=== PATIENT | male | born 1955 | race Caucasian/White ===

== ENCOUNTER 2021-05-26 09:19 | Inpatient (IN) ==
[~2021-05-26 09:19] MED LIST: GLUCAGON 1 MG VIAL IM PRN; NITROGLYCERIN SL 0.4 MG TABLET SL PRN; hydrALAZINE 20 MG/1 ML VIAL IV PRN
[2021-05-26 17:03] LABS: Basophils # 0.1 10*3/uL (0.0-0.2); Basophils % 0.8 % (0.0-0.8); Eosinophils # 0.4 10*3/uL (0.0-0.87); Eosinophils % 5.2 % (0.00-10.9); Hematocrit 45.9 VOL% (42.0-52.0); Hemoglobin 14.5 GM/DL (14.0-18.0); Immature Granulocytes % 0.5 %; Immature Granulocytes Absolute 0.04 #; Lymphocytes # 1.5 10*3/uL (1.4-4.0); Lymphocytes % 17.3 % (21.2-54.2); Mean Corpuscular HGB Conc 31.6 GM/DL (32-36); Mean Corpuscular Volume 82.3 FL (87-102); Mean Platelet Volume 9.5 FL (9.6-12.0); Monocytes % 7.6 % (1.7-12.7); Neutrophils % 68.6 % (38.7-73.9); Platelet Count 196 T/CUMM (130-400); Red Blood Count 5.58 MC/CUMM (3.8-5.5); Red Cell Distribution Width 14.4 % (9.3-17.3); White Blood Count 8.4 T/CUMM (4-12)
[2021-05-26] MEDS ORDERED: DEXTROSE 10% 250 ML BAG IV PRN (17:07)
[2021-05-26 17:21] LABS: Albumin 3.4 G/DL (3.4-5.0); Bilirubin,Total 0.4 MG/DL (0.20-1.00); Calcium 8.6 MG/DL (8.5-10.1); Osmolality,Calculated 282.2 MOS/KG (273-304); Potassium 3.9 MMOL/L (3.5-5.1); Total Protein 7.5 G/DL (6.4-8.2)
[2021-05-26] MEDS: INSULIN REGULAR 100 UNIT/ML SUBCUT SCH ×3 (17:26→20:53)
[2021-05-26] MEDS: ACETAMINOPHEN 325 MG TABLET PO PRN (18:35)
[2021-05-26] MEDS: CLORAZEPATE 3.75 MG TABLET PO PRN (23:02)
[2021-05-27] MEDS: INSULIN REGULAR 100 UNIT/ML SUBCUT SCH ×4 (09:02→23:20)
[2021-05-27] MEDS: amLODIPine 10 MG TABLET PO SCH (09:02)
[2021-05-27] MEDS: cloNIDine 0.1 MG TABLET PO SCH (09:03)
[2021-05-27] MEDS: CHLORHEXIDINE 0.12% ORAL RINSE 60 ML BOTTLE SWISH/SPIT SCH ×2 (09:58→20:28)
[2021-05-27] MEDS: ACETAMINOPHEN 325 MG TABLET PO PRN (09:59)
[2021-05-27] MEDS: CHLORHEXIDINE 4% SOLN 118 ML BOTTLE TOP SCH ×3 (10:00→20:28)
[2021-05-27 10:31] LABS: Calcium 8.6 MG/DL (8.5-10.1); Osmolality,Calculated 281.7 MOS/KG (273-304); Potassium 4.1 MMOL/L (3.5-5.1)
[2021-05-27] MEDS ORDERED: SERTRALINE 100 MG TABLET PO SCH (21:00)
[2021-05-27] MEDS: CLORAZEPATE 3.75 MG TABLET PO PRN (23:20)
[2021-05-28] MEDS ORDERED: PAPAVERINE 60 MG/2 ML VIAL ONE (04:55)
[2021-05-28] MEDS ORDERED: VANCOMYCIN 500 MG VIAL ONE (04:56)
[2021-05-28] MEDS ORDERED: VANCOMYCIN 1,000 MG VIAL ONE (04:56)
[2021-05-28] MEDS ORDERED: CEFUROXIME INJ 1,500 MG in SODIUM CHLORIDE 0.9% 100 ML IV ONE (05:00)
[2021-05-28] MEDS: CHLORHEXIDINE 4% SOLN 118 ML BOTTLE TOP SCH (05:13)
[2021-05-28] MEDS ORDERED: PHENYLEPHRINE DRIP 20 MG/250 ML PREMIX IV ONE (05:40)
[2021-05-28] MEDS ORDERED: NITROGLYCERIN DRIP 50 MG/250 ML BOTTLE IV ONE ×2 (05:42→10:43)
[2021-05-28] MEDS ORDERED: LIDOCAINE 2% 5 ML VIAL ONE ×2 (05:58→10:25)
[2021-05-28] MEDS ORDERED: SUFentanil 250 MCG/5 ML AMP ONE ×2 (05:58→07:34)
[2021-05-28] MEDS ORDERED: LACTATED RINGERS 1,000 ML IV ONE (05:58)
[2021-05-28] MEDS ORDERED: ePHEDrine 50 MG/ML VIAL ONE (05:58)
[2021-05-28] MEDS ORDERED: SEVOFLURANE 1 UNIT/15 MINUTE INH ONE (05:58)
[2021-05-28] MEDS ORDERED: SODIUM CHLORIDE 0.9% 1,000 ML IV ONE (05:58)
[2021-05-28] MEDS ORDERED: CALCIUM CHLORIDE 1,000 MG/10 ML VIAL IV ONE (05:58)
[2021-05-28] MEDS ORDERED: ETOMIDATE 40 MG/20 ML VIAL IV ONE (05:58)
[2021-05-28] MEDS ORDERED: MINERAL OIL/PETROLATUM OPH OINT 3.5 GM TUBE ONE (05:58)
[2021-05-28] MEDS ORDERED: SODIUM CHLORIDE 0.9% 250 ML IV ONE (05:58)
[2021-05-28] MEDS ORDERED: MIDAZOLAM 10 MG/2 ML VIAL ONE ×3 (05:58)
[2021-05-28] MEDS ORDERED: VECURONIUM 10 MG VIAL IV ONE ×2 (05:58→11:11)
[2021-05-28] MEDS ORDERED: AMINOCAPROIC ACID 5,000 MG/20 ML VIAL ONE (05:58)
[2021-05-28] MEDS ORDERED: PANTOPRAZOLE 40 MG TABLET PO ONE (06:00)
[2021-05-28] MEDS ORDERED: DIAZEPAM 5 MG TABLET PO ONE (06:00)
[2021-05-28] MEDS ORDERED: SODIUM CHLORIDE 0.9% 1,000 ML IV SCH (06:00)
[2021-05-28 06:28] LABS: Osmolality,Calculated 275.5 MOS/KG (273-304); Potassium 3.1 MMOL/L (3.5-5.1)
[2021-05-28 07:29] LABS: ABG Base Excess 2.2 MMOL/L (-2.5-2.5); ABG HCO3 26.4 MMOL/L (20-26); ABG Oxygen Saturation 99.8 % (95-100); ABG PCO2 42.1 MM HG (35-48); ABG PH 7.415 (7.35-7.45); ABG TCO2 23.5 MMOL/L (23-27); Glucose Heart Surgery 249 MG/DL (74-106); Ionized Calcium Arterial 1.14 MMOL/L (1.21-1.46); PCO2 Patient Temp Arterial 42.1 MMHG; PH Patient Temp Arterial 7.415; Patient Temperature 37 CELCIUS; Potassium Heart/CVR 3.4 MMOL/L (3.5-5.1); Sodium Heart/CVR 136 MMOL/L (135-145)
[2021-05-28 07:37] LABS: Hyaline Casts,Urine 4 /LPF (0-3); Mucus,Urine Occasional /LPF (Occasional); RBC,Urine 3 /HPF (0-4)
[2021-05-28 07:38] LABS: Bilirubin,Urine Negative (Negative); Blood, Urine Small mg/dL (Negative); Glucose,Urine (UA) 3+ mg/dL (Negative); Ketones,Urine 1+ mg/dL (Negative); Nitrite,Urine Negative (Negative); Protein,Urine 2+ mg/dL (Negative); Urine Appearance Clear (Clear); Urine Color Yellow (Yellow); Urine Specific Gravity 1.025 (1.001-1.035); Urine Urobilinogen 0.2 eU/dL (<2.0); Urine pH 5.5 (4.5-8.0)
[2021-05-28] MEDS ORDERED: ALBUTEROL INHALER 18 GM INH ONE (08:29)
[2021-05-28] MEDS ORDERED: HEPARIN/NACL 0.9% 2 UNITS/ML 1,000 UNIT/500 ML BAG IV ONE (08:37)
[2021-05-28 08:49] LABS: Hematocrit Heart Surgery 28.4 PERCENT (42-52); Hemoglobin Heart Surgery 9.2 G/DL (14.0-18.0); PCO2 Patient Temp Venous 42.9 MM HG; PH Patient Temp Venous 7.399; PO2 Patient Temp Venous 35.6 MM HG; Potassium Heart/CVR 3.2 MMOL/L (3.5-5.1); VBG Base Excess 1.7 MEQ/L (0-4); VBG HCO3 25.6 MEQ/L (24-28); VBG Oxygen Saturation 74.9 %; VBG PCO2 49.6 MMHG (41-51); VBG PH 7.356; VBG PO2 43.8 MMHG (17-40); VBG Total CO2 25.7 MMOL/L
[2021-05-28] MEDS ORDERED: SODIUM BICARBONATE 50 MEQ/50 ML VIAL IV ONE ×2 (09:10→10:26)
[2021-05-28] MEDS ORDERED: NITROPRUSSIDE 50 MG/2 ML VIAL ONE (09:10)
[2021-05-28] MEDS ORDERED: POTASSIUM CHLORIDE RIDER 20 MEQ/100 ML PREMIX IV ONE (09:10)
[2021-05-28] MEDS ORDERED: CALCIUM CHLORIDE 1,000 MG/10 ML SYRINGE IV ONE (09:11)
[2021-05-28 09:21] LABS: Hematocrit Heart Surgery 30.9 PERCENT (42-52); PH Patient Temp Venous 7.456; PO2 Patient Temp Venous 34.9 MM HG; Potassium Heart/CVR 3.5 MMOL/L (3.5-5.1); VBG Base Excess 2.4 MEQ/L (0-4); VBG HCO3 26.2 MEQ/L (24-28); VBG Oxygen Saturation 76.7 %; VBG PCO2 42.8 MMHG (41-51); VBG PH 7.412; VBG PO2 43.1 MMHG (17-40); VBG Total CO2 24.9 MMOL/L
[2021-05-28] MEDS ORDERED: ESMOLOL 100 MG/10 ML VIAL IV ONE ×2 (09:28→11:51)
[2021-05-28 09:52] LABS: Hematocrit Heart Surgery 31.6 PERCENT (42-52); Hemoglobin Heart Surgery 10.2 G/DL (14.0-18.0); PCO2 Patient Temp Venous 38.4 MM HG; PH Patient Temp Venous 7.45; PO2 Patient Temp Venous 35.1 MM HG; Potassium Heart/CVR 4.2 MMOL/L (3.5-5.1); VBG Base Excess 2.7 MEQ/L (0-4); VBG HCO3 26.3 MEQ/L (24-28); VBG Oxygen Saturation 68.4 %; VBG PCO2 38.4 MMHG (41-51); VBG PH 7.45; VBG PO2 35.1 MMHG (17-40); VBG Total CO2 24.3 MMOL/L
[2021-05-28 10:23] LABS: ABG Base Excess 0.5 MMOL/L (-2.5-2.5); ABG HCO3 24.8 MMOL/L (20-26); ABG Oxygen Saturation 99.1 % (95-100); ABG PCO2 43.8 MM HG (35-48); ABG PH 7.378 (7.35-7.45); ABG TCO2 23.4 MMOL/L (23-27); Glucose Heart Surgery 311 MG/DL (74-106); Hematocrit Heart Surgery 32.5 PERCENT (42-52); Hemoglobin Heart Surgery 10.5 G/DL (14.0-18.0); Ionized Calcium Arterial 1.26 MMOL/L (1.21-1.46); PCO2 Patient Temp Arterial 43.8 MMHG; PH Patient Temp Arterial 7.378; Patient Temperature 37 CELCIUS; Potassium Heart/CVR 3.6 MMOL/L (3.5-5.1); Sodium Heart/CVR 133 MMOL/L (135-145)
[2021-05-28] MEDS ORDERED: methylPREDNISolone SOD SUC 1,000 MG/8 ML VIAL ONE (10:25)
[2021-05-28] MEDS ORDERED: MANNITOL 100 GM/500 ML BAG IV ONE (10:25)
[2021-05-28] MEDS ORDERED: PROTAMINE SULFATE 250 MG/25 ML VIAL IV ONE (10:25)
[2021-05-28] MEDS ORDERED: DEXTROSE 5% KCL 20 MEQ 20 MEQ/1,000 ML BAG IV ONE (10:25)
[2021-05-28] MEDS ORDERED: ALBUMIN 25% 25 GM/100 ML VIAL IV ONE (10:25)
[2021-05-28] MEDS ORDERED: MAGNESIUM SULFATE 5 GM/10 ML VIAL IV ONE (10:25)
[2021-05-28] MEDS ORDERED: HEPARIN 10,000 UNIT/10 ML VIAL ONE (10:26)
[2021-05-28] MEDS ORDERED: FUROSEMIDE 20 MG/2 ML VIAL ONE (10:26)
[2021-05-28] MEDS ORDERED: POTASSIUM CHLORIDE 20 MEQ/10 ML VIAL ONE (10:26)
[2021-05-28] MEDS ORDERED: PROTAMINE SULFATE 50 MG/5 ML VIAL IV ONE (10:26)
[2021-05-28] MEDS: MIDAZOLAM 2 MG/2 ML VIAL IV PRN ×3 (11:05→12:59)
[2021-05-28] MEDS ORDERED: MIDAZOLAM 2 MG/2 ML VIAL ONE (11:06)
[2021-05-28] MEDS ORDERED: MAGNESIUM SULF RIDER 4 GM/100 ML PREMIX IV PRN (11:08)
[2021-05-28] MEDS ORDERED: ONDANSETRON 4 MG/2 ML VIAL IV PRN (11:08)
[2021-05-28] MEDS ORDERED: MIDAZOLAM 10 MG/2 ML VIAL IV PRN (11:08)
[2021-05-28] MEDS ORDERED: MAGNESIUM SULF RIDER 2 GM/50 ML PREMIX IV PRN (11:08)
[2021-05-28] MEDS ORDERED: CALCIUM CHLORIDE 1,000 MG/10 ML SYRINGE IV PRN (11:08)
[2021-05-28] MEDS ORDERED: NITROPRUSSIDE 100 MG in DEXTROSE 5% 250 ML IV PRN (11:08)
[2021-05-28] MEDS ORDERED: PHENYLEPHRINE DRIP 40 MG/250 ML PREMIX IV PRN (11:08)
[2021-05-28] MEDS ORDERED: VECURONIUM 10 MG VIAL IV PRN ×2 (11:08)
[2021-05-28] MEDS ORDERED: INSULIN REGULAR 100 UNIT/ML IV PRN (11:08)
[2021-05-28] MEDS ORDERED: INSULIN REGULAR 100 UNIT/ML IV ONE (11:08)
[2021-05-28] MEDS ORDERED: CHLORHEXIDINE 4% SOLN 118 ML BOTTLE TOP PRN (11:08)
[2021-05-28] MEDS ORDERED: DEXTROSE 10% 250 ML BAG IV PRN ×2 (11:08)
[2021-05-28] MEDS ORDERED: ACETAMINOPHEN 650 MG SUPP RECTAL PRN (11:08)
[2021-05-28] MEDS: METOPROLOL TARTRATE 25 MG TABLET PO SCH ×2 (11:14→22:21)
[2021-05-28 11:20] LABS: ABG Base Excess -2.3 MMOL/L (-2.5-2.5); ABG HCO3 22.5 MMOL/L (20-26); ABG Oxygen Saturation 98.5 % (95-100); ABG PCO2 47.7 MM HG (35-48); ABG PH 7.314 (7.35-7.45); ABG TCO2 21.9 MMOL/L (23-27); Glucose Heart Surgery 354 MG/DL (74-106); Hematocrit Heart Surgery 34.1 PERCENT (42-52); Hemoglobin Heart Surgery 11.1 G/DL (14.0-18.0); Potassium Heart/CVR 3.2 MMOL/L (3.5-5.1)
[2021-05-28 11:24] LABS: Basophils % 0.7 % (0.0-0.8); Eosinophils # 0.2 10*3/uL (0.0-0.87); Eosinophils % 2.5 % (0.00-10.9); Hematocrit 34.1 VOL% (42.0-52.0); Hemoglobin 11.2 GM/DL (14.0-18.0); Immature Granulocytes % 0.5 %; Immature Granulocytes Absolute 0.03 #; Lymphocytes # 0.6 10*3/uL (1.4-4.0); Lymphocytes % 10.5 % (21.2-54.2); Mean Corpuscular HGB Conc 32.8 GM/DL (32-36); Mean Corpuscular Volume 80.8 FL (87-102); Mean Platelet Volume 9.5 FL (9.6-12.0); Monocytes % 4.8 % (1.7-12.7); Platelet Count 145 T/CUMM (130-400); Red Blood Count 4.22 MC/CUMM (3.8-5.5); Red Cell Distribution Width 14.1 % (9.3-17.3); White Blood Count 6.1 T/CUMM (4-12)
[2021-05-28] MEDS: MORPHINE 10 MG/1 ML VIAL IV PRN ×3 (11:28→18:33)
[2021-05-28 11:37] LABS: INR 1.1; PT Patient Result 12.3 SECS (10.5-12.0); Partial Thromboplastin Time 30.1 SECS (23.8-32.1)
[2021-05-28] MEDS ORDERED: hydrALAZINE 20 MG/1 ML VIAL ONE (11:40)
[2021-05-28 11:49] LABS: CKMB % 5.3 %
[2021-05-28] MEDS ORDERED: LABETALOL 20 MG/4 ML SYRINGE IV ONE (11:50)
[2021-05-28 11:52] LABS: High Sensitive Troponin I* 1623.8 ng/L (0-78)
[2021-05-28] MEDS ORDERED: VALSARTAN 160 MG TABLET PER TUBE SCH (12:00)
[2021-05-28] MEDS ORDERED: LABETALOL INJ 200 MG in SODIUM CHLORIDE 0.9% 160 ML IV SCH (12:00)
[2021-05-28] MEDS: SODIUM CHLORIDE 0.45% 1,000 ML IV SCH ×2 (12:04)
[2021-05-28 12:07] LABS: Albumin 2.6 G/DL (3.4-5.0); Bilirubin,Total 0.7 MG/DL (0.20-1.00); Calcium 7.6 MG/DL (8.5-10.1); Potassium 3.4 MMOL/L (3.5-5.1); Total Protein 5.1 G/DL (6.4-8.2)
[2021-05-28] MEDS: POTASSIUM CHLORIDE RIDER 20 MEQ/100 ML PREMIX IV PRN ×8 (12:07→23:43)
[2021-05-28] MEDS: ALBUMIN 5% 12.5 GM/250 ML VIAL IV PRN ×3 (12:14→22:22)
[2021-05-28] MEDS: LACTATED RINGERS 250 ML IV PRN ×6 (12:14→16:27)
[2021-05-28 12:21] LABS: Lymphocytes 11 % (20-55); Metamyelocytes 1 %; Microcytosis 1+; Platelet Estimate Normal; Segmented Neutrophils 85 % (50-85); Spherocytes Slight; Total Cells Counted 100
[2021-05-28] MEDS: INSULIN REGULAR 100 UNIT/ML SUBCUT SCH (12:23)
[2021-05-28] MEDS: cloNIDine 0.1 MG TABLET PO SCH ×3 (12:23→22:21)
[2021-05-28] MEDS: CHLORHEXIDINE 0.12% ORAL RINSE 60 ML BOTTLE SWISH/SPIT SCH ×2 (12:24→21:35)
[2021-05-28] MEDS: amLODIPine 10 MG TABLET PO SCH (12:24)
[2021-05-28] MEDS: INSULIN REGULAR DRIP 100 ML IV SCH ×2 (12:54→19:50)
[2021-05-28] MEDS ORDERED: FUROSEMIDE 40 MG/4 ML VIAL IV ONE ×2 (14:06→18:10)
[2021-05-28 14:27] LABS: ABG Base Excess -1.9 MMOL/L (-2.5-2.5); ABG HCO3 22.8 MMOL/L (20-26); ABG Oxygen Saturation 97.1 % (95-100); ABG PCO2 45.1 MM HG (35-48); ABG PH 7.334 (7.35-7.45); ABG PO2 94.5 MM HG (80-95)
[2021-05-28 14:37] LABS: ABG Base Excess -1.4 MMOL/L (-2.5-2.5); ABG HCO3 23.2 MMOL/L (20-26); ABG Oxygen Saturation 96.8 % (95-100); ABG PCO2 45.2 MM HG (35-48); ABG PH 7.342 (7.35-7.45); ABG PO2 88.9 MM HG (80-95); ABG TCO2 22.4 MMOL/L (23-27); Glucose Heart Surgery 380 MG/DL (74-106); Hematocrit Heart Surgery 31.2 PERCENT (42-52); Hemoglobin Heart Surgery 10.1 G/DL (14.0-18.0); Potassium Heart/CVR 3.4 MMOL/L (3.5-5.1)
[2021-05-28 16:58] LABS: ABG Base Excess -2.4 MMOL/L (-2.5-2.5); ABG HCO3 22.4 MMOL/L (20-26); ABG Oxygen Saturation 97.6 % (95-100); ABG PCO2 44.7 MM HG (35-48); ABG PO2 98.9 MM HG (80-95); ABG TCO2 21.7 MMOL/L (23-27); Glucose Heart Surgery 309 MG/DL (74-106); Hematocrit Heart Surgery 30.2 PERCENT (42-52); Hemoglobin Heart Surgery 9.7 G/DL (14.0-18.0); Potassium Heart/CVR 3.3 MMOL/L (3.5-5.1)
[2021-05-28] MEDS: DEXMEDETOMIDINE 200 MCG in SODIUM CHLORIDE 0.9% 48 ML IV PRN ×2 (17:11→20:19)
[2021-05-28] MEDS: CEFUROXIME INJ 1,500 MG in SODIUM CHLORIDE 0.9% 100 ML IV SCH (18:42)
[2021-05-28] MEDS: FUROSEMIDE INJ 100 MG in SODIUM CHLORIDE 0.9% 90 ML IV SCH ×2 (19:05→23:52)
[2021-05-28 19:39] LABS: ABG Base Excess -2.4 MMOL/L (-2.5-2.5); ABG HCO3 22.4 MMOL/L (20-26); ABG PCO2 41.5 MM HG (35-48); ABG PH 7.352 (7.35-7.45); ABG TCO2 20.9 MMOL/L (23-27); Glucose Heart Surgery 246 MG/DL (74-106); Hemoglobin Heart Surgery 10.4 G/DL (14.0-18.0); Potassium Heart/CVR 3.2 MMOL/L (3.5-5.1)
[2021-05-28 19:58] LABS: CKMB % 3.9 %; High Sensitive Troponin I* 1716.8 ng/L (0-78)
[2021-05-28] MEDS ORDERED: DEXMEDETOMIDINE 400 MCG in SODIUM CHLORIDE 0.9% 96 ML IV PRN (20:53)
[2021-05-28 21:10] LABS: ABG Base Excess -1.8 MMOL/L (-2.5-2.5); ABG HCO3 22.8 MMOL/L (20-26); ABG Oxygen Saturation 95.6 % (95-100); ABG PH 7.396 (7.35-7.45); ABG PO2 80.3 MM HG (80-95); Glucose Heart Surgery 202 MG/DL (74-106); Hemoglobin Heart Surgery 10.4 G/DL (14.0-18.0); Potassium Heart/CVR 3.4 MMOL/L (3.5-5.1)
[2021-05-28] MEDS: MORPHINE 4 MG/1 ML VIAL IV PRN (21:55)
[2021-05-28 22:51] LABS: ABG Base Excess -1.5 MMOL/L (-2.5-2.5); ABG HCO3 23.1 MMOL/L (20-26); ABG Oxygen Saturation 96.9 % (95-100); ABG PCO2 40.4 MM HG (35-48); ABG PH 7.374 (7.35-7.45); ABG PO2 86.4 MM HG (80-95); ABG TCO2 21.5 MMOL/L (23-27); Glucose Heart Surgery 157 MG/DL (74-106); Hematocrit Heart Surgery 30.4 PERCENT (42-52); Hemoglobin Heart Surgery 9.8 G/DL (14.0-18.0); Potassium Heart/CVR 3.9 MMOL/L (3.5-5.1)
[2021-05-29 00:15] LABS: ABG Base Excess -1.1 MMOL/L (-2.5-2.5); ABG HCO3 23.3 MMOL/L (20-26); ABG Oxygen Saturation 96.7 % (95-100); ABG PCO2 37.7 MM HG (35-48); ABG PH 7.409 (7.35-7.45); ABG PO2 90.5 MM HG (80-95); ABG TCO2 24.5 MMOL/L (23-27); Glucose Heart Surgery 116 MG/DL (74-106); Hemoglobin Heart Surgery 10.7 G/DL (14.0-18.0); Potassium Heart/CVR 3.9 MMOL/L (3.5-5.1)
[2021-05-29] MEDS: POTASSIUM CHLORIDE RIDER 10 MEQ/100 ML PREMIX IV PRN ×2 (00:38→06:51)
[2021-05-29 01:06] LABS: ABG Base Excess -0.3 MMOL/L (-2.5-2.5); ABG HCO3 24.1 MMOL/L (20-26); ABG Oxygen Saturation 95.7 % (95-100); ABG PCO2 38.5 MM HG (35-48); ABG PH 7.414 (7.35-7.45); ABG PO2 78.4 MM HG (80-95); ABG TCO2 25.3 MMOL/L (23-27); Glucose Heart Surgery 127 MG/DL (74-106); Hemoglobin Heart Surgery 10.5 G/DL (14.0-18.0); Potassium Heart/CVR 4.1 MMOL/L (3.5-5.1)
[2021-05-29 01:53] LABS: ABG Base Excess -0.8 MMOL/L (-2.5-2.5); ABG HCO3 23.7 MMOL/L (20-26); ABG Oxygen Saturation 97.2 % (95-100); ABG PCO2 41.2 MM HG (35-48); ABG PH 7.378 (7.35-7.45); ABG PO2 89.9 MM HG (80-95); ABG TCO2 22.1 MMOL/L (23-27); Glucose Heart Surgery 170 MG/DL (74-106); Hematocrit Heart Surgery 30.6 PERCENT (42-52); Hemoglobin Heart Surgery 9.9 G/DL (14.0-18.0)
[2021-05-29 02:49] LABS: ABG Base Excess -0.9 MMOL/L (-2.5-2.5); ABG HCO3 23.6 MMOL/L (20-26); ABG Oxygen Saturation 97.3 % (95-100); ABG PCO2 42.4 MM HG (35-48); ABG PH 7.367 (7.35-7.45); ABG PO2 89.5 MM HG (80-95); ABG TCO2 22.4 MMOL/L (23-27); Glucose Heart Surgery 189 MG/DL (74-106); Hematocrit Heart Surgery 29.4 PERCENT (42-52); Hemoglobin Heart Surgery 9.5 G/DL (14.0-18.0); Potassium Heart/CVR 3.6 MMOL/L (3.5-5.1)
[2021-05-29 02:51] LABS: Basophils % 0.2 % (0.0-0.8); Hemoglobin 9.7 GM/DL (14.0-18.0); Immature Granulocytes Absolute 0.11 #; Lymphocytes # 0.3 10*3/uL (1.4-4.0); Lymphocytes % 2.8 % (21.2-54.2); Mean Corpuscular HGB Conc 32.3 GM/DL (32-36); Mean Corpuscular Volume 81.5 FL (87-102); Mean Platelet Volume 9.4 FL (9.6-12.0); Platelet Count 146 T/CUMM (130-400); Red Blood Count 3.68 MC/CUMM (3.8-5.5); Red Cell Distribution Width 14.5 % (9.3-17.3); White Blood Count 11.1 T/CUMM (4-12)
[2021-05-29] MEDS: POTASSIUM CHLORIDE RIDER 20 MEQ/100 ML PREMIX IV PRN ×2 (03:05→05:40)
[2021-05-29 03:15] LABS: CKMB % 2.7 %
[2021-05-29 03:16] LABS: High Sensitive Troponin I* 1574.9 ng/L (0-78)
[2021-05-29 03:20] LABS: Lymphocytes 5 % (20-55); Platelet Estimate Adequate; Segmented Neutrophils 91 % (50-85); Total Cells Counted 100
[2021-05-29 03:35] LABS: Bilirubin,Direct 0.11 MG/DL (0.0-0.20); Bilirubin,Total 0.4 MG/DL (0.20-1.00); Calcium 7.9 MG/DL (8.5-10.1); Osmolality,Calculated 287.5 MOS/KG (273-304); Potassium 3.7 MMOL/L (3.5-5.1); Total Protein 5.7 G/DL (6.4-8.2)
[2021-05-29] MEDS: ALBUMIN 5% 12.5 GM/250 ML VIAL IV PRN (03:50)
[2021-05-29] MEDS: MORPHINE 4 MG/1 ML VIAL IV PRN ×3 (04:40→08:37)
[2021-05-29] MEDS: FUROSEMIDE INJ 100 MG in SODIUM CHLORIDE 0.9% 90 ML IV SCH (04:44)
[2021-05-29 05:12] LABS: ABG HCO3 23.6 MMOL/L (20-26); ABG Oxygen Saturation 96.8 % (95-100); ABG PCO2 39.4 MM HG (35-48); ABG PH 7.389 (7.35-7.45); ABG PO2 84.7 MM HG (80-95); ABG TCO2 21.9 MMOL/L (23-27); Glucose Heart Surgery 150 MG/DL (74-106); Hematocrit Heart Surgery 28.7 PERCENT (42-52); Hemoglobin Heart Surgery 9.3 G/DL (14.0-18.0); Potassium Heart/CVR 3.8 MMOL/L (3.5-5.1)
[2021-05-29] MEDS: CEFUROXIME INJ 1,500 MG in SODIUM CHLORIDE 0.9% 100 ML IV SCH ×2 (06:17→18:03)
[2021-05-29] MEDS: INSULIN REGULAR 100 UNIT/ML SUBCUT SCH ×5 (07:53→21:27)
[2021-05-29] MEDS: LACTATED RINGERS 250 ML IV PRN ×3 (08:01→09:09)
[2021-05-29] MEDS: cloNIDine 0.1 MG TABLET PO SCH ×2 (08:23→21:26)
[2021-05-29] MEDS: ASPIRIN EC 81 MG TABLET PO SCH (08:23)
[2021-05-29] MEDS: METOPROLOL TARTRATE 25 MG TABLET PO SCH (08:23)
[2021-05-29] MEDS: CHLORHEXIDINE 0.12% ORAL RINSE 60 ML BOTTLE SWISH/SPIT SCH ×3 (08:23→21:27)
[2021-05-29] MEDS: amLODIPine 10 MG TABLET PO SCH (08:23)
[2021-05-29] MEDS: oxyCODONE/ACETAMINOPHEN 5-325 MG TABLET PO PRN ×3 (08:38→15:30)
[2021-05-29 08:48] LABS: ABG Base Excess -2.1 MMOL/L (-2.5-2.5); ABG HCO3 22.6 MMOL/L (20-26); ABG Oxygen Saturation 95.3 % (95-100); ABG PH 7.462 (7.35-7.45); ABG PO2 68.1 MM HG (80-95); ABG TCO2 18.9 MMOL/L (23-27); Glucose Heart Surgery 225 MG/DL (74-106); Hematocrit Heart Surgery 30.6 PERCENT (42-52); Hemoglobin Heart Surgery 9.9 G/DL (14.0-18.0); Potassium Heart/CVR 4.1 MMOL/L (3.5-5.1)
[2021-05-29] MEDS ORDERED: MAGNESIUM HYDROXIDE SUSP 30 ML UDCUP PO PRN (11:41)
[2021-05-29] MEDS ORDERED: MAGNESIUM SULF RIDER 4 GM/100 ML PREMIX IV PRN (11:41)
[2021-05-29] MEDS ORDERED: MAGNESIUM SULF RIDER 2 GM/50 ML PREMIX IV PRN (11:41)
[2021-05-29] MEDS ORDERED: ACETAMINOPHEN 325 MG TABLET PO PRN (11:41)
[2021-05-29] MEDS ORDERED: ONDANSETRON 4 MG/2 ML VIAL IV PRN (11:41)
[2021-05-29] MEDS ORDERED: GLUCAGON 1 MG VIAL IM PRN (11:41)
[2021-05-29] MEDS ORDERED: ALUMINUM/MAGNES/SIMETH MAX STR 30 ML UDCUP PO PRN (11:41)
[2021-05-29] MEDS ORDERED: DEXTROSE 10% 250 ML BAG IV PRN (11:41)
[2021-05-29] MEDS ORDERED: SODIUM CHLOR 0.45% KCL 20 MEQ 20 MEQ/1,000 ML BAG IV SCH (11:41)
[2021-05-29 12:00] LABS: CKMB % 1.6 %; High Sensitive Troponin I* 1214.6 ng/L (0-78)
[2021-05-29] MEDS: DOCUSATE SODIUM 100 MG CAPSULE PO SCH (12:33)
[2021-05-29] MEDS: FERROUS SULFATE 325 MG TABLET PO SCH (12:34)
[2021-05-29] MEDS: PANTOPRAZOLE 40 MG TABLET PO SCH (12:34)
[2021-05-29] MEDS: ASCORBIC ACID 500 MG TABLET PO SCH ×2 (12:34→21:25)
[2021-05-29] MEDS: ALBUTEROL/IPRATROPIUM 3 ML NEB RESP TX SCH ×2 (13:50→19:30)
[2021-05-29] MEDS: INSULIN REGULAR DRIP 100 ML IV SCH (14:24)
[2021-05-29] MEDS: SODIUM CHLORIDE 0.45% 1,000 ML IV SCH ×2 (14:24)
[2021-05-29] MEDS ORDERED: HYDROmorphone 1 MG/1 ML SYRINGE IV ONE (19:45)
[2021-05-29] MEDS ORDERED: INSULIN GLARGINE 100 UNIT/ML SUBCUT ONE (20:00)
[2021-05-29] MEDS: ZALEPLON 5 MG CAPSULE PO PRN (21:25)
[2021-05-29] MEDS: SERTRALINE 100 MG TABLET PO SCH (21:26)
[2021-05-30] MEDS: ZALEPLON 5 MG CAPSULE PO PRN (00:53)
[2021-05-30 04:52] LABS: Basophils % 0.1 % (0.0-0.8); Hematocrit 31.9 VOL% (42.0-52.0); Hemoglobin 10.2 GM/DL (14.0-18.0); Immature Granulocytes % 1.1 %; Immature Granulocytes Absolute 0.11 #; Lymphocytes # 0.6 10*3/uL (1.4-4.0); Lymphocytes % 5.5 % (21.2-54.2); Mean Corpuscular Volume 82.6 FL (87-102); Mean Platelet Volume 10.3 FL (9.6-12.0); Monocytes % 9.2 % (1.7-12.7); Neutrophils % 84.1 % (38.7-73.9); Platelet Count 151 T/CUMM (130-400); Red Blood Count 3.86 MC/CUMM (3.8-5.5); Red Cell Distribution Width 14.6 % (9.3-17.3); White Blood Count 10.4 T/CUMM (4-12)
[2021-05-30 05:11] LABS: Albumin 2.9 G/DL (3.4-5.0); Bilirubin,Direct 0.12 MG/DL (0.0-0.20); Bilirubin,Direct 0.14 MG/DL (0.0-0.20); Bilirubin,Indirect 0.4 MG/DL (0.0-1.0); Bilirubin,Total 0.5 MG/DL (0.20-1.00); Bilirubin,Total 0.8 MG/DL (0.20-1.00); CKMB % 1.2 %; Calcium 7.8 MG/DL (8.5-10.1); Osmolality,Calculated 285.1 MOS/KG (273-304); Potassium 4.2 MMOL/L (3.5-5.1); Total Protein 6.1 G/DL (6.4-8.2)
[2021-05-30 05:12] LABS: High Sensitive Troponin I* 752.1 ng/L (0-78)
[2021-05-30 05:14] LABS: Hypochromia 1+; Lymphocytes 7 % (20-55); Microcytosis 1+; Platelet Estimate Adequate; Segmented Neutrophils 86 % (50-85); Total Cells Counted 100
[2021-05-30] MEDS ORDERED: FUROSEMIDE 40 MG/4 ML VIAL IV ONE (06:00)
[2021-05-30] MEDS: ALBUTEROL/IPRATROPIUM 3 ML NEB RESP TX SCH ×4 (07:05→19:52)
[2021-05-30] MEDS ORDERED: AMIODARONE INJ 150 MG in DEXTROSE 5% 100 ML IV ONE (08:03)
[2021-05-30] MEDS ORDERED: DILTIAZEM 50 MG/10 ML VIAL IV ONE (08:05)
[2021-05-30] MEDS ORDERED: AMIODARONE 150 MG/3 ML VIAL ONE (08:07)
[2021-05-30] MEDS ORDERED: AMIODARONE 450 MG/9 ML VIAL IV ONE (08:08)
[2021-05-30] MEDS: FERROUS SULFATE 325 MG TABLET PO SCH (08:20)
[2021-05-30] MEDS ORDERED: AMIODARONE INJ 450 MG in DEXTROSE 5% 241 ML IV SCH (08:30)
[2021-05-30] MEDS ORDERED: INSULIN GLARGINE 100 UNIT/ML SUBCUT SCH (09:00)
[2021-05-30] MEDS: DILTIAZEM INJ 100 MG in SODIUM CHLORIDE 0.9% 100 ML IV SCH (09:05)
[2021-05-30] MEDS: ASPIRIN EC 81 MG TABLET PO SCH (09:18)
[2021-05-30] MEDS: cloNIDine 0.1 MG TABLET PO SCH ×2 (09:18→20:25)
[2021-05-30] MEDS: ASCORBIC ACID 500 MG TABLET PO SCH ×2 (09:18→20:26)
[2021-05-30] MEDS: GABAPENTIN 300 MG CAPSULE PO SCH (09:18)
[2021-05-30] MEDS: carvediloL 3.125 MG TABLET PO SCH ×2 (09:19→20:26)
[2021-05-30] MEDS: amLODIPine 10 MG TABLET PO SCH (09:19)
[2021-05-30] MEDS: DOCUSATE SODIUM 100 MG CAPSULE PO SCH (09:19)
[2021-05-30] MEDS: POTASSIUM CHLORIDE 20 MEQ TABLET PO PRN (09:19)
[2021-05-30] MEDS: PANTOPRAZOLE 40 MG TABLET PO SCH (09:19)
[2021-05-30] MEDS: INSULIN REGULAR 100 UNIT/ML SUBCUT SCH (09:22)
[2021-05-30] MEDS ORDERED: INSULIN GLARGINE 100 UNIT/ML SUBCUT ONE (10:25)
[2021-05-30 12:01] LABS: Folate 13.28 NG/ML (5.38-24.0)
[2021-05-30 12:04] LABS: % Iron Saturation 7.5 % (18-50); Thyroid Stimulating Hormone 0.13 uIU/ml (0.358-3.74)
[2021-05-30] MEDS: INSULIN LISPRO 100 UNIT/ML SUBCUT SCH ×3 (12:40→20:26)
[2021-05-30] MEDS: CHLORHEXIDINE 0.12% ORAL RINSE 60 ML BOTTLE SWISH/SPIT SCH ×2 (13:44→20:25)
[2021-05-30] MEDS: AMIODARONE INJ 450 MG in DEXTROSE 5% 241 ML IV SCH (16:15)
[2021-05-30] MEDS: ATORVASTATIN 20 MG TABLET PO SCH (20:26)
[2021-05-30] MEDS: SERTRALINE 100 MG TABLET PO SCH (20:26)
[2021-05-31] MEDS: AMIODARONE INJ 450 MG in DEXTROSE 5% 241 ML IV SCH ×2 (00:09→07:35)
[2021-05-31] MEDS: ALBUTEROL/IPRATROPIUM 3 ML NEB RESP TX SCH ×4 (01:20→20:00)
[2021-05-31 05:29] LABS: Basophils % 0.1 % (0.0-0.8); Eosinophils # 0.1 10*3/uL (0.0-0.87); Eosinophils % 0.5 % (0.00-10.9); Hematocrit 32.2 VOL% (42.0-52.0); Hemoglobin 10.3 GM/DL (14.0-18.0); Immature Granulocytes % 0.7 %; Immature Granulocytes Absolute 0.07 #; Lymphocytes # 1.3 10*3/uL (1.4-4.0); Lymphocytes % 13.2 % (21.2-54.2); Mean Corpuscular Volume 83.9 FL (87-102); Mean Platelet Volume 10.9 FL (9.6-12.0); Monocytes % 11.5 % (1.7-12.7); Platelet Count 167 T/CUMM (130-400); Red Blood Count 3.84 MC/CUMM (3.8-5.5); Red Cell Distribution Width 14.8 % (9.3-17.3); White Blood Count 9.5 T/CUMM (4-12)
[2021-05-31 05:53] LABS: Alanine Aminotransferase 21 U/L (16-61); Albumin 2.6 G/DL (3.4-5.0); Albumin 2.8 G/DL (3.4-5.0); Aspartate Amino Transferase 17 U/L (0-37); Bilirubin,Direct 0.14 MG/DL (0.0-0.20); Bilirubin,Indirect 0.4 MG/DL (0.0-1.0); Bilirubin,Total 0.6 MG/DL (0.20-1.00); Calcium 7.9 MG/DL (8.5-10.1); Potassium 3.7 MMOL/L (3.5-5.1); Total Protein 5.9 G/DL (6.4-8.2); Total Protein 6.1 G/DL (6.4-8.2)
[2021-05-31 05:54] LABS: Alkaline Phosphatase 77 U/L (45-117)
[2021-05-31] MEDS: POLYETHYLENE GLYCOL POWDER 17 GM PACK PO SCH (09:28)
[2021-05-31] MEDS: DOCUSATE SODIUM 100 MG CAPSULE PO SCH (09:29)
[2021-05-31] MEDS: GABAPENTIN 300 MG CAPSULE PO SCH (09:29)
[2021-05-31] MEDS: PANTOPRAZOLE 40 MG TABLET PO SCH (09:30)
[2021-05-31] MEDS: cloNIDine 0.1 MG TABLET PO SCH ×2 (09:30→21:07)
[2021-05-31] MEDS: ASCORBIC ACID 500 MG TABLET PO SCH ×2 (09:30→21:07)
[2021-05-31] MEDS: carvediloL 3.125 MG TABLET PO SCH ×2 (09:30→21:08)
[2021-05-31] MEDS: ASPIRIN EC 81 MG TABLET PO SCH (09:30)
[2021-05-31] MEDS: POTASSIUM CHLORIDE 20 MEQ TABLET PO PRN ×2 (09:31→09:32)
[2021-05-31] MEDS: AMIODARONE 200 MG TABLET PO SCH ×2 (09:31→21:07)
[2021-05-31] MEDS: amLODIPine 5 MG TABLET PO SCH (09:31)
[2021-05-31] MEDS: INSULIN LISPRO 100 UNIT/ML SUBCUT SCH ×4 (09:34→21:08)
[2021-05-31] MEDS: INSULIN GLARGINE 100 UNIT/ML SUBCUT SCH (09:35)
[2021-05-31] MEDS: FERROUS SULFATE 325 MG TABLET PO SCH (11:31)
[2021-05-31] MEDS: DILTIAZEM INJ 100 MG in SODIUM CHLORIDE 0.9% 100 ML IV SCH (11:32)
[2021-05-31] MEDS: CHLORHEXIDINE 0.12% ORAL RINSE 60 ML BOTTLE SWISH/SPIT SCH ×2 (13:15→21:08)
[2021-05-31] MEDS ORDERED: LACTULOSE 20 GM/30 ML UDCUP PO PRN (14:45)
[2021-05-31] MEDS: SERTRALINE 100 MG TABLET PO SCH (21:07)
[2021-05-31] MEDS: ATORVASTATIN 20 MG TABLET PO SCH (21:07)
[2021-06-01] MEDS: ALBUTEROL/IPRATROPIUM 3 ML NEB RESP TX SCH ×2 (00:30→07:15)
[2021-06-01 06:16] LABS: Basophils % 0.4 % (0.0-0.8); Eosinophils # 0.4 10*3/uL (0.0-0.87); Eosinophils % 5.3 % (0.00-10.9); Hematocrit 31.9 VOL% (42.0-52.0); Hemoglobin 10.1 GM/DL (14.0-18.0); Immature Granulocytes % 0.7 %; Immature Granulocytes Absolute 0.05 #; Lymphocytes # 1.2 10*3/uL (1.4-4.0); Lymphocytes % 15.7 % (21.2-54.2); Mean Corpuscular HGB Conc 31.7 GM/DL (32-36); Mean Corpuscular Volume 83.7 FL (87-102); Mean Platelet Volume 10.5 FL (9.6-12.0); Monocytes % 12.9 % (1.7-12.7); Platelet Count 176 T/CUMM (130-400); Red Blood Count 3.81 MC/CUMM (3.8-5.5); Red Cell Distribution Width 14.5 % (9.3-17.3); White Blood Count 7.4 T/CUMM (4-12)
[2021-06-01 06:23] LABS: Calcium 7.9 MG/DL (8.5-10.1); Potassium 3.7 MMOL/L (3.5-5.1)
[2021-06-01] MEDS: GABAPENTIN 300 MG CAPSULE PO SCH (09:01)
[2021-06-01] MEDS: POLYETHYLENE GLYCOL POWDER 17 GM PACK PO SCH (09:01)
[2021-06-01] MEDS: carvediloL 3.125 MG TABLET PO SCH (09:01)
[2021-06-01] MEDS: ASCORBIC ACID 500 MG TABLET PO SCH (09:01)
[2021-06-01] MEDS: cloNIDine 0.1 MG TABLET PO SCH (09:01)
[2021-06-01] MEDS: FERROUS SULFATE 325 MG TABLET PO SCH (09:01)
[2021-06-01] MEDS: DOCUSATE SODIUM 100 MG CAPSULE PO SCH (09:02)
[2021-06-01] MEDS: PANTOPRAZOLE 40 MG TABLET PO SCH (09:02)
[2021-06-01] MEDS: ASPIRIN EC 81 MG TABLET PO SCH (09:02)
[2021-06-01] MEDS: amLODIPine 5 MG TABLET PO SCH (09:02)
[2021-06-01] MEDS: AMIODARONE 200 MG TABLET PO SCH (09:03)
[2021-06-01] MEDS: INSULIN GLARGINE 100 UNIT/ML SUBCUT SCH (09:04)
[2021-06-01] MEDS: INSULIN LISPRO 100 UNIT/ML SUBCUT SCH ×2 (09:05→13:35)
[2021-06-01] MEDS: CHLORHEXIDINE 0.12% ORAL RINSE 60 ML BOTTLE SWISH/SPIT SCH (09:05)
[2021-06-01 12:33] VITALS: BP 143/66
== END 2021-06-01 14:10 | disposition home health service (06) | DRG 236 ==
LOC: N.TELES 16:07 → N.CVR 05-28 10:35 → N.TELES 05-29 09:50